=== PATIENT | female | born 1985 | race African-American/Black ===

== ENCOUNTER 2023-07-12 10:33 | Emergency (ER) | payer OTHER, SELFPAY ==
--- NOTE | ~2023-07-12 | XR_ITS ---
Cervical Spine: AP, lateral, open-mouth views Clinical History: Pain Findings: There is reversal of the normal cervical lordosis. No fracture or subluxation identified. T he intervertebral disc spaces are well maintained. Pre-vertebral soft tissues are unremarkable. Impression: No fracture or subluxation seen. Reversal of the normal cervical lordosis. Reviewed, dictated and finalized at [facility]. Impression: No fracture or subluxation seen. Reversal of the normal cervical lordosis.
[2023-07-12 10:46] VITALS: BP 142/77; PULSE 86; RESP 18; TEMP 36.9; O2SAT 100
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
[2023-07-12] MEDS: KETOROLAC (*BKC) 60 MG/2 ML VIAL IM (11:19)
== END 2023-07-12 11:45 | disposition home or self-care (01) ==
PROVIDERS: Emergency Provider Nurse Practitioner
DX: M54.2 Cervicalgia (principal); V49.9XXA Car occupant (driver) (passenger) injured in unspecified traffic accident, initial encounter
CPT/HCPCS: 72050; 96372; 99213; G0463; J1885